=== PATIENT | male | born 1955 ===

== ENCOUNTER 2018-12-24 06:09 | Day surgery (SDC) | payer BC ==
[2013-05-03 10:42] VITALS: BMI 31.4
[2018-12-24 06:51] VITALS: O2SAT 100
--- NOTE | 2018-12-24 08:06 | CP.SDSHP ---
Same Day Surgery H & P - History Proposed Procedure: endoscopy Pre-Op Diagnosis: abdom pain, ulcer - Previous Medical/Surgical History Comments: PUD - Allergies Allergies: Allergies No Known Allergies Allergy (Verified 04/05/13 10:45) - Physical Exam Vital Signs: Vital Signs 12/24/18 06:44 Temperature 97.5 F L Pulse Rate 80 Respiratory 2 L Rate Blood Pressure 151/60 H O2 Sat by Pulse 100 Oximetry Mental Status: Alert & Oriented x3 Neuro: WNL Heart: WNL Lungs: WNL GI: WNL - {Optional Preform as Required} Abdomen: WNL - Impression Impression: gastritis Pt. Evaluated Today:Candidate for Anesthesia & Procedure: Yes - Date & Time Date: 12/24/18 Time: 07:50 Short Stay Discharge - Short Stay Discharge Admitting Diagnosis/Reason for Visit: GENERALIZED ABDOMINAL PAIN Disposition: HOME/ ROUTINE
[2018-12-24] MEDS ORDERED: Propofol 10 mg/ml Inj (20 ML) ONE (08:08)
[2018-12-24] MEDS ORDERED: Lactated Ringer's 500 ML IV ONE ×2 (08:09)
[2018-12-24 09:31] VITALS: BP 131/79; PULSE 78; RESP 19; TEMP 98.1
== END 2018-12-24 09:25 | disposition home or self-care (01) ==
LOC: C.ENDO 06:09
PROVIDERS: ATTEND Internal Medicine Gastroenterology
DX: K21.0 Gastro-esophageal reflux disease with esophagitis (principal); K29.50 Unspecified chronic gastritis without bleeding; K31.7 Polyp of stomach and duodenum; Z87.11 Personal history of peptic ulcer disease; Z87.19 Personal history of other diseases of the digestive system; Z98.890 Other specified postprocedural states
CPT/HCPCS: 43239; 88305; 88312; 88342; J2704; J7120

== ENCOUNTER 2019-01-26 08:33 | Outpatient (CLI) | payer BC | END 2019-01-26 08:34 | disposition home or self-care (01) | LOC: C.LAB 08:33 | DX: R10.9 Unspecified abdominal pain (principal) ==

== ENCOUNTER 2019-02-02 08:26 | Outpatient (CLI) | payer BC | END 2019-02-02 08:27 | disposition home or self-care (01) | LOC: C.CTH 08:26 | DX: R10.9 Unspecified abdominal pain (principal) ==

== ENCOUNTER 2019-03-02 14:35 | Emergency (ER) | payer BC ==
[2019-03-02 14:53] VITALS: BMI 21.7
--- NOTE | 2019-03-02 16:08 | C.PDOC ---
History Of Present Illness 63 y/o male presents to the ER complaining of wound to the left great toe. Patient states that he is currently being treated by , field consultant and he is currently on Keflex. Patient reports that the wound has improved but the wound has not fully healed after 2 weeks of therapy. Denies having fever and chills. Chief Complaint (Nursing): Abnormal Skin Integrity History Per: Patient History/Exam Limitations: no limitations Onset/Duration Of Symptoms: Days Current Symptoms Are (Timing): Still Present Severity: Moderate Past Medical History Reviewed: Historical Data, Nursing Documentation, Vital Signs Vital Signs: Last Vital Signs Temp 99.6 F 03/02/19 14:56 Pulse 99 H 03/02/19 14:56 Resp 18 03/02/19 14:56 BP 158/79 H 03/02/19 14:56 Pulse Ox 99 03/02/19 14:56 Primary Care Provider: FAMILY PROVIDER,NO - Medical History PMH: Chronic Kidney Disease Surgical History: Endoscopy - [facility] Procedures ENDO EXCISION/DEST OF LESION OR TISSUE OF STOMACH (04/05/13) Family History: States: No Known Family Hx - Social History Hx Alcohol Use: No Hx Substance Use: No - Immunization History Hx Tetanus Toxoid Vaccination: No Hx Influenza Vaccination: No Hx Pneumococcal Vaccination: No Review Of Systems Except As Marked, All Systems Reviewed And Found Negative. Constitutional: Negative for: Fever, Chills Skin: Positive for: Other (wound to left great toe) Physical Exam - Physical Exam Appears: Non-toxic, No Acute Distress Skin: Normal Color, Warm, Dry, Other (ulcer to left great toe) Head: Atraumatic, Normacephalic Eye(s): bilateral: Normal Inspection Nose: Normal Oral Mucosa: Moist Neck: Supple Chest: Symmetrical Extremity: Normal ROM, Tenderness (mild tenderness to palpation over left great toe), Capillary Refill (< 2 seconds) Pulses: Left Dorsalis Pedis: Normal, Right Dorsalis Pedis: Normal Neurological/Psych: Oriented x3, Normal Speech, Normal Sensation ED Course And Treatment - Laboratory Results Result Diagrams: 03/02/19 16:18 03/02/19 16:18 O2 Sat by Pulse Oximetry: 99 (RA) Pulse Ox Interpretation: Normal Medical Decision Making Medical Decision Making: Plan: --Labs --Blood Culture --X-Ray-Left Great Toe Updates: Patient has blood sugar levels > 400 in ER. Patient reports that he had bloodwork done in January 2019 but he never followed up. He notes that he has strong family history of diabetes. Patient has been discharged with prescription for Metformin. Patient has been instructed to follow up with field consultant for wound care and clinic for primary care. Disposition - Disposition Referrals: [facility] [Outside] [facility] [Outside] Disposition: HOME/ ROUTINE Disposition Time: 17:20 Condition: STABLE Additional Instructions: BELINDA REYES, thank you for letting us take care of you today. The emergency medical care you received today was directed at your acute symptoms. If you were prescribed any medication, please fill it and take as directed. It may take several days for your symptoms to resolve. Return to the Emergency Department if your symptoms worsen, do not improve, or if you have any other problems. Please contact your doctor or call one of the physicians/clinics you have been referred to that are listed on the Patient Visit Information form that is included in your discharge packet. Bring any paperwork you were given at discharge with you along with any medications you are taking to your follow up visit. Our treatment cannot replace ongoing medical care by a primary care provider outside of the emergency department. Thank you for allowing the [facility] team to be part of your care today. You blood sugar was elevated here in the emergency room. The blood sugar was elevated last month when you have your blood tested. Follow up with your clinic or our clinic this week for re-evaluation and further management of your blood sugar. Follow up with your field consultant this week for continued wound care of your toe. Finish taking the antibiotics that your field consultant already prescribed. Prescriptions: Ibuprofen [Motrin] 600 mg PO Q6 PRN #20 tab PRN Reason: Pain, Moderate (4-7) metFORMIN [glucOPHAGE] 500 mg PO BID #14 tab Instructions: Diabetes Exchange Diet, The ABCs of Diabetes, Treatment for Type 2 Diabetes Forms: [employer] (Gambian) - Clinical Impression Clinical Impression: New onset type 2 diabetes mellitus, Skin ulcer - Scribe Statement The provider has reviewed the documentation as recorded by the Jailyn Reese Provider Attestation: All medical record entries made by the Jasonibnataly were at my direction and personally dictated by me. I have reviewed the chart and agree that the record accurately reflects my personal performance of the history, physical exam, medical decision making, and the department course for this patient. I have also personally directed, reviewed, and agree with the discharge instructions and disposition.
[2019-03-02 16:21] LABS: BASO % 0.5 % (0.0-2.0); EOS % 0.1 % (0.0-4.0); HEMOGLOBIN 14.7 g/dL (12.0-18.0); LYMPH # 1.4 K/uL (1.0-4.3); LYMPH % 16.3 % (20.0-40.0); MEAN CELL VOLUME 83.2 fL (80.0-94.0); MEAN CORPUSCULAR HEMOGLOBIN 27.9 pg (27.0-31.0); MEAN CORPUSCULAR HGB CONC 33.6 g/dL (33.0-37.0); MEAN PLATELET VOLUME 8.3 fL (7.2-11.7); MONO # 0.6 K/uL (0.0-0.8); MONO % 6.9 % (0.0-10.0); NEUT # 6.5 K/uL (1.8-7.0); NEUT % 76.2 % (50.0-75.0); RBC 5.27 Mil/uL (4.40-5.90); WHITE BLOOD COUNT 8.5 K/uL (4.8-10.8)
--- NOTE | 2019-03-02 16:21 | RAD ---
PROCEDURE: Radiographs of the left great toe. TECHNIQUE:: AP radiograph of the left foot, with oblique and lateral view of the left great toe. 3 view obtained. COMPARISON: None. FINDINGS: BONES: There is periarticular bone demineralization. No acute fracture. No bone destruction or bone erosion. JOINTS: Normal. SOFT TISSUES: There is moderate soft tissue swelling and ulceration in the medial soft tissues of the great toe. OTHER FINDINGS: None. IMPRESSION: No radiographic evidence for osteomyelitis. Cellulitis and ulceration in the great toe.
[2019-03-02 17:03] LABS: BLOOD UREA NITROGEN 14 mg/dL (9-20); GFR NON-AFRICAN AMERICAN > 60
[2019-03-02 17:04] LABS: ALB/GLOB RATIO 1.1 (1.0-2.1); AST/SGOT 26 U/L (17-59)
[2019-03-02 17:19] LABS: ALT/SGPT 22 U/L (21-72)
[2019-03-02 18:13] VITALS: BP 142/83; PULSE 87; RESP 20; TEMP 98.5
[2019-03-02 21:29] VITALS: O2SAT 99
== END 2019-03-02 18:16 | disposition home or self-care (01) ==
LOC: C.ER 14:35
DX: N18.9 Chronic kidney disease, unspecified (principal); E11.9 Type 2 diabetes mellitus without complications; Z83.3 Family history of diabetes mellitus; L97.529 Non-pressure chronic ulcer of other part of left foot with unspecified severity